=== PATIENT | female | born 1995 | race Caucasian/White ===

== ENCOUNTER 2017-09-20 22:18 | Outpatient (CLI) | payer MEDICAID ==
[2017-09-20] MEDS ORDERED: LACTATED RINGERS 1,000 ML IV SCH (23:00)
[2017-09-20] MEDS ORDERED: NACL 0.9% 1000 ML 1,000 ML ONE (23:39)
[2017-09-20 23:47] LABS: Bacteria,Urine 2+ /HPF (Negative); Bilirubin,Urine NEG (Negative); Blood,Urine NEG (Negative); Color,Urine Yellow (Yellow); Mucus,Urine FEW /HPF; Protein,Urine <15 mg/dL mg/dL (Negative); Urobilinogen,Urine < 2.0 mg/dL (<2.0)
[2017-09-21] MEDS ORDERED: VISTARIL PO ONE (00:02)
[2017-09-22 12:13] VITALS: BP 119/75
== END 2017-09-21 00:18 | disposition home or self-care (01) ==
LOC: TRG 22:18
PROVIDERS: ATTEND Obstetrics & Gynecology
DX: O62.9 Abnormality of forces of labor, unspecified (principal); O26.893 Other specified pregnancy related conditions, third trimester; M54.9 Dorsalgia, unspecified
CPT/HCPCS: 59025; 81001; 96360; J7120; J7030; Q0177

== ENCOUNTER 2017-09-27 19:13 | Inpatient (IN) | payer MEDICAID ==
[2017-09-27] MEDS ORDERED: ZOFRAN IV PRN (20:34)
[2017-09-27] MEDS ORDERED: ePHEDrine SULFATE IV PRN ×2 (20:34→23:14)
[2017-09-27] MEDS ORDERED: STADOL IV PRN (20:34)
[2017-09-27] MEDS ORDERED: BRETHINE IVP PRN (20:34)
[2017-09-27] MEDS ORDERED: MINERAL OIL PO PRN (20:34)
[2017-09-27] MEDS ORDERED: SUBLIMAZE IV PRN (20:34)
[2017-09-27] MEDS ORDERED: NORMOSOL-R PH 7.4 1,000 ML IV ONE (20:34)
[2017-09-27] MEDS ORDERED: PHENERGAN PR PRN (20:34)
[2017-09-27] MEDS ORDERED: XYLOCAINE 2% INFILTRATI ONE (20:34)
[2017-09-27] MEDS ORDERED: BRETHINE SUB-Q PRN (20:34)
--- NOTE | 2017-09-27 20:42 | History and Physical Report ---
History of Present Illness Date of examination: 09/27/17 Chief complaint: 21 yo at 38wk 1day EGA by EDC of 10/10/2017 admitted with regular contractions and cervical change to now 4 cm, 90%. No complications. MBT A pos, R_ Im, GBS neg History of present illness: Remainder of H&P from [facility] and confirmed today. OB Intake Ethnicity: OTHER Scientology: alevism Occupation: unemployed Father of baby: Ruslan HERNANDEZ contact #: [phone] Vital Signs Height: 62 in. Weight (lb): 119 Pre- Weight: 112 BP: 108/ 70 mm Hg Chief Complaint/Current Status: Patient here as transfer from [facility] 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 of genital herpes: no Partner hx. of genital herpes: no Rash, Viral, or Febrile illness since last LMP? no Varicella/Chicken Pox Status: Previous Disease TB Risk: no Genetic History Congenital Heart Defect: Mom: no Dad: no Dean Disease: Mom: no Dad: no Thalassemia Mom: no Dad: no Neural Tube Defect Mom: yes Dad: no Comments: Paternal Aunt cleft palate Down's Syndrome Mom: yes Dad: no Comments: Brother (mother was AMA) Tomasz-Sachs Mom: no Dad: no Sickle Cell Disease/Trait Mom: no Dad: no Hemophilia Mom: no Dad: no Muscular Dystrophy Mom: no Dad: no Cystic Fibrosis Mom: no Dad: no Cottle Chorea Mom: no Dad: no Mental Retardation Mom: no Dad: no Fragile X Mom: no Dad: no Other Genetic/Chromosomal Disorder Mom: no Dad: no Child w/other defect Mom: no Dad: no Enviromental Exposures Xray Exposure: no Medication, drug, or alcohol use since LMP: no Chemical/Other Exposure: no Exposure to Cat Liter: no Hx of Parvovirus (Fifth Disease): no Occupational Exposure to Children: none Current Allergies (reviewed today): No known allergies Laboratory Results Urine HCG: positive Review of Systems General Denies fever, chills, sweats, anorexia, fatigue, weakness, malaise, weight loss and sleep disorder. Denies nausea, vomiting, headache, swelling of legs, abdominal pain, vaginal discharge, vaginal bleeding and contractions. Denies vaginal discharge, incontinence, dysuria, hematuria, urinary frequency, amenorrhea, menorrhagia, abnormal vaginal bleeding, pelvic pain, genital sores, decreased libido, painful periods, painful sex, urinary urgency, hot flashes, vaginal dryness, vaginal itching and vaginal odor. CV Denies chest pains, palpitations, syncope, dyspnea on exertion, orthopnea, PND and peripheral edema. Resp Denies cough, dyspnea at rest, excessive sputum, hemoptysis, wheezing and pleurisy. GI Denies nausea, vomiting, diarrhea, constipation, change in bowel habits, abdominal pain, melena, hematochezia, jaundice, gas/bloating, indigestion/ heartburn, dysphagia and odynophagia. Endo Denies cold intolerance, heat intolerance, polydipsia, polyphagia, polyuria and unusual weight change. Breast Denies left breast lump, right breast lump, nipple discharge, bloody discharge from nipple, breast pain, abnormal mammogram and breast enlargement. MS Denies back pain, joint pain, joint swelling, muscle cramps, muscle weakness, stiffness, arthritis, sciatica, restless legs, leg pain at night and leg pain with exertion. Derm Denies rash, itching, dryness and suspicious lesions. Neuro Denies paralysis, paresthesias, headache, seizures, tremors, vertigo, transient blindness, frequent falls, frequent headaches and difficulty walking. Psych Denies depression, anxiety, irritability and mood swings. Eyes Denies blurring, diplopia, irritation, discharge, vision loss, eye pain and photophobia. ENT Denies earache, ear discharge, tinnitus, decreased hearing, nasal congestion, nosebleeds, sore throat and hoarseness. Allergy Denies urticaria, allergic rash, hay fever and recurrent infections. Heme Denies abnormal bruising, bleeding and enlarged lymph nodes. 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 Assessment and Plan - Patient Problems (1) Active labor at term Current Visit: Yes Status: Acute Plan to address problem: anticipate vaginal delivery
[2017-09-27] MEDS ORDERED: PITOCin/NS 20 UNIT/1000ML DRIP 20 UNITS/1,000 ML BAG IV SCH (21:00)
[2017-09-27] MEDS ORDERED: PITOCin/NS 30 UNIT/500ML 30 UNITS/500 ML BAG IV SCH ×2 (21:00)
[2017-09-27 21:04] LABS: Hematocrit 32.8 % (30.3-42.9); Hemoglobin 10.8 gm/dl (10.1-14.3); Mean Corpuscular HGB Conc 33 % (30-34); Mean Corpuscular Hemoglobin 28 pg (28-32); Mean Corpuscular Volume 86 fl (79-97); Platelet Count 187 K/mm3 (140-440); Red Blood Count 3.81 M/mm3 (3.65-5.03); Red Cell Distribution Width 14.5 % (13.2-15.2)
[2017-09-27] MEDS: NORMOSOL-R PH 7.4 1,000 ML IV SCH ×2 (21:32→23:02)
--- NOTE | 2017-09-27 23:13 | Anesthesia Consultation ---
Anesthesia Consult and Med Hx - Airway Anesthetic Teeth Evaluation: Good ROM Head & Neck: Adequate Mallampati Class: Class II Intubation Access Assessment: Good - Pulmonary Exam CTA: Yes - Cardiac Exam Cardiac Exam: RRR - Pre-Operative Health Status ASA Pre-Surgery Classification: ASA2 Proposed Anesthetic Plan: Epidural, Spinal - Pulmonary Hx Asthma: No - Cardiovascular System Hx Hypertension: No - Central Nervous System Hx Seizures: No Hx Psychiatric Problems: No - Endocrine Hx Renal Disease: No Hx Hypothyroidism: No Hx Hyperthyroidism: No - Hematic Hx Anemia: No Hx Sickle Cell Disease: No - Other Systems Hx Alcohol Use: No
[2017-09-27] MEDS ORDERED: NARCAN 2 MG/2 ML IV PRN (23:14)
--- NOTE | 2017-09-27 23:14 | Anesthesia Day of Surgery ---
Anesthesia Day of Surgery - Day of Surgery Patient Examined: Yes Patient H&P Reviewed: Yes Patient is NPO: Yes
[2017-09-27] MEDS ORDERED: fentaNYL-BUPIV 2 MCG/ML-0.125% 200 MCG/100 ML BAG EPIDURAL SCH (23:45)
--- NOTE | 2017-09-27 23:57 | Event Note ---
Date: 09/27/172349--now 9cm, 90, -1 and LOT. EFW 8#. AROM thin meconium. Anticipate vag del.
--- NOTE | 2017-09-28 01:16 | Procedure Note ---
OB Delivery Note - Delivery Date of Delivery: 09/28/17 Surgeon: ELZBIETA JIMENEZ Estimated blood loss: 300cc - Vaginal Delivery presentation: vertex Delivery position: OA Intrapartum events: none (thin meconium and tight nuchal cord) Delivery induction: none Delivery augmentation: rupture of membranes Delivery monitor: external FHT, external uterine Route of delivery: Delivery placenta: spontaneous Delivery cord: nuchal cord (had to be cut prior to del of body) Episiotomy: midline (2nd degree) Delivery laceration: vaginal side wall (large right periurethral tear repaired) Delivery repair: vicryl (2-0 & 3-0) Anesthesia: epidural - A at 1 minute: 3 at 5 minutes: 8 Gender: Female (7#1oz female stunned from very tight nuchal cord)
[2017-09-28] MEDS ORDERED: MILK OF MAGNESIA PO PRN (01:18)
[2017-09-28] MEDS ORDERED: PHENERGAN PR PRN (01:18)
[2017-09-28] MEDS ORDERED: PHENERGAN PO PRN (01:18)
[2017-09-28] MEDS ORDERED: DULCOLAX PR PRN (01:18)
[2017-09-28] MEDS ORDERED: BENADRYL PO PRN (01:18)
[2017-09-28] MEDS ORDERED: TUCKS PAD TP PRN (01:18)
[2017-09-28] MEDS ORDERED: ANUCORT-HC PR PRN (01:18)
[2017-09-28] MEDS ORDERED: LANSINOH TP PRN (01:18)
[2017-09-28] MEDS ORDERED: TYLENOL PO PRN (01:18)
[2017-09-28] MEDS ORDERED: ZOFRAN IV PRN (01:18)
[2017-09-28] MEDS ORDERED: SODIUM CHLORIDE FLUSH SYRINGE 10 ML IV NR (02:00)
[2017-09-28] MEDS: NORCO 5/325 PO PRN ×2 (04:35→21:35)
[2017-09-28] MEDS: MOTRIN PO SCH ×3 (05:34→21:33)
--- NOTE | 2017-09-28 07:23 | Progress Note ---
Assessment and Plan - Patient Problems (1) Vaginal delivery Onset Date: ~09/28/17 Current Visit: Yes Status: Acute Plan to address problem: Pt w/o complaint VSS FF Lochia moderate Perineum intact. Doing well P: continue pathway Subjective - Subjective Date of service: 09/28/17 (pt resting No c/o voiced) Principal diagnosis: 6hrs s/p Patient reports: appetite normal, voiding normally, pain well controlled [place]: doing well Objective - Vital Signs Latest vital signs: Vital Signs Temp Pulse Resp BP BP Pulse Ox 09/28/17 02:35 98.7 F 81 20 113/75 09/28/17 02:20 85 114/73 98 09/28/17 02:08 83 117/68 09/28/17 01:53 84 115/67 09/28/17 01:38 82 118/69 09/28/17 01:23 84 112/68 09/28/17 01:10 98.5 F 18 09/28/17 01:08 96 H 119/65 09/28/17 00:47 98 H 94 09/28/17 00:42 100 H 98 09/28/17 00:37 96 H 98 09/28/17 00:32 99 H 97 09/28/17 00:27 83 96 09/28/17 00:23 86 117/77 09/28/17 00:22 84 98 09/28/17 00:17 86 98 09/28/17 00:12 90 96 09/28/17 00:09 80 114/66 09/28/17 00:07 84 99 09/28/17 00:02 83 97 09/27/17 23:57 82 98 09/27/17 23:54 110/59 09/27/17 23:52 92 H 97 09/27/17 23:47 77 97 09/27/17 23:42 95 H 96 09/27/17 23:38 80 115/61 09/27/17 23:37 79 99 09/27/17 23:36 112/65 09/27/17 23:34 82 116/69 09/27/17 23:32 71 112/67 97 09/27/17 23:30 77 120/67 09/27/17 23:27 78 96 09/27/17 23:22 83 98 09/27/17 23:17 72 98 09/27/17 23:15 98.6 F 22 09/27/17 23:12 74 99 09/27/17 23:08 74 124/68 09/27/17 23:07 74 99 09/27/17 23:02 77 99 09/27/17 21:29 20 09/27/17 21:12 76 100 09/27/17 19:31 98.4 F 18 Intake and Output 09/27/17 09/28/17 09/28/17 22:59 06:59 14:59 Intake Total 1240 Output Total 1100 Balance 140 Intake: IV 1000 Normosol-R pH 7.4 1,000 1000 ml @ 125 mls/hr IV DIRECT GUERRERO Rx#:[id number] Intake, Free Water 240 Output: Urine 1100 Indwelling Catheter 200 Void 900 Other: Total, Output Amount 500 Weight 141 lb Estimated Blood Loss 300 - Exam Breasts: Present: normal Cardiovascular: Present: Regular rate Lungs: Present: Normal air movement Abdomen: Present: normal appearance, soft, normal bowel sounds Uterus: Present: normal, firm, fundal height below umbilicus Extremities: Present: normal Deep Tendon Reflex Grade: Normal +2 Incision: Present: normal
[2017-09-28] MEDS: COLACE PO SCH ×2 (11:09→21:33)
[2017-09-28] MEDS ORDERED: DERMOPLAST TP ONE (14:23)
[2017-09-28 16:00] LABS: Hematocrit 26.8 % (30.3-42.9); Hemoglobin 8.5 gm/dl (10.1-14.3)
[2017-09-29] MEDS: MOTRIN PO SCH (05:22)
[2017-09-29] MEDS ORDERED: BOOSTRIX IM ONE (06:00)
--- NOTE | 2017-09-29 08:21 | Discharge Summary ---
Providers - Providers Date of Admission: 09/27/17 20:43 Date of discharge: 09/29/17 (desires d/c home today) Attending physician: ELZBIETA JIMENEZ Primary care physician: ELZBIETA JIMENEZ Hospitalization Reason for admission: labor Condition: Good Procedures: vaginal delivery Hospital course: uncomplicated vaginal delivery and course. Disposition: DC-01 TO HOME OR SELFCARE - Discharge Diagnoses (1) Vaginal delivery Status: Acute Core Measure Documentation - Palliative Care Palliative Care/ Comfort Measures: Not Applicable - Core Measures Any of the following diagnoses?: none Exam - Constitutional Vitals: Temp Pulse Resp BP Pulse Ox 98.4 F 68 20 101/62 97 09/29/17 02:05 09/29/17 02:05 09/29/17 02:05 09/29/17 02:05 09/29/17 02:05 General appearance: Present: no acute distress, well-nourished - EENT Eyes: Present: PERRL ENT: hearing intact, clear oral mucosa - Neck Neck: Present: supple, normal ROM - Respiratory Respiratory effort: normal Respiratory: bilateral: CTA - Cardiovascular Heart Sounds: Present: S1 & S2. Absent: rub, click - Extremities Extremities: pulses symmetrical, No edema Peripheral Pulses: within normal limits - Abdominal General gastrointestinal: Present: soft, non-tender, non-distended, normal bowel sounds Female genitourinary: Present: normal - Integumentary Integumentary: Present: clear, warm, dry - Musculoskeletal Musculoskeletal: gait normal, strength equal bilaterally - Psychiatric Psychiatric: appropriate mood/affect, intact judgment & insight - Neurologic Neurologic: CNII-XII intact, moves all extremities - Additional findings Additional findings: lochia scant, VSSAF, H&H stable (8.5/26.8 - anemia d/t acute blood loss, asymptomatic) . plan for f/u in office 4 weeks for visit. Plan Activity: no restrictions Diet: regular Wound: keep clean and dry Follow up with: ELZBIETA JIMENEZ MD [Primary Care Provider] - 10/27/17 (Congratulations! Please call [phone] to schedule your visit in 4 weeks. Call for any questions or concerns.)
--- NOTE | 2017-09-29 08:23 | Event Note ---
Date: 09/29/17 elevated LFTs in office (collected after patient c/o itching). Will recheck prior to d/c home today to make sure they are decreasing.
[2017-09-29 09:05] LABS: Albumin 2.3 g/dL (3.9-5); Bilirubin,Direct 0.3 mg/dL (0-0.2)
[2017-09-29 12:44] VITALS: BP 118/72
== END 2017-09-29 12:45 | disposition home or self-care (01) | DRG 775 ==
LOC: TRG 19:13 → LD 20:43 → OB 09-28 02:32
PROVIDERS: ADMIT Obstetrics & Gynecology; ATTEND Obstetrics & Gynecology
PROC: 10E0XZZ Delivery of Products of Conception, External Approach (ICD-10-PCS; principal; 2017-09-28)
PROC: 0KQM0ZZ Repair Perineum Muscle, Open Approach (ICD-10-PCS; 2017-09-28)
PROC: 0W8NXZZ Division of Female Perineum, External Approach (ICD-10-PCS; 2017-09-28)
PROC: 3E0R3BZ Introduction of Anesthetic Agent into Spinal Canal, Percutaneous Approach (ICD-10-PCS; 2017-09-28)
PROC: 00HU33Z Insertion of Infusion Device into Spinal Canal, Percutaneous Approach (ICD-10-PCS; 2017-09-28)
PROC: 3E0234Z Introduction of Serum, Toxoid and Vaccine into Muscle, Percutaneous Approach (ICD-10-PCS; 2017-09-29)
DX: O77.0 Labor and delivery complicated by meconium in amniotic fluid (principal); O69.1XX0 Labor and delivery complicated by cord around neck, with compression, not applicable or unspecified; O71.4 Obstetric high vaginal laceration alone; Z3A.38 38 weeks gestation of pregnancy; Z37.0 Single live birth; Z23 Encounter for immunization
CPT/HCPCS: 36415; 80074; 85014; 85018; 85027; 86592; 86850; 86900; 86901; 90471; 90715; 99211; A6250; G0463; J0595; J2590